=== PATIENT | male | born 1970 ===

== ENCOUNTER 2017-10-23 06:48 | Emergency (ER) | payer OTHER ==
[~2017-10-23] VITALS: Ht 172.7 cm; Wt 104.3 kg
[~2017-10-23 06:48] MED LIST: SYNTHROID88 MCG PO; ZOLOFT100 MG PO; [UNRECOGNIZED DRUG - OTHER]; [UNRECOGNIZED DRUG - OTHER] PO
== END 2017-10-23 20:13 | disposition home or self-care (01) ==
LOC: ER 06:48
DX: K60.2 Anal fissure, unspecified (principal); K62.5 Hemorrhage of anus and rectum